=== PATIENT | female | born 1930 | race Caucasian/White ===

== ENCOUNTER 2018-09-20 23:01 | Inpatient (IN) | payer MEDICARE, OTHER ==
[~2018-09-20] VITALS: Ht 170.2 cm; Wt 65.3 kg
[2018-09-21] VITALS (10 sets, daily range): BP systolic 124–158; BP diastolic 66–84
[2018-09-21] MEDS ORDERED: SODIUM CHLORIDE 0.9% 1000ML 1,000 ML IV STA (00:06)
[2018-09-21] MEDS ORDERED: CEFTRIAXONE SOD 1 GM/NS 50 ML 50 ML IV ONE (00:15)
--- NOTE | 2018-09-21 00:47 | Diagnostic Imaging Report ---
EXAM: CT Abdomen and Pelvis WITHOUT contrast INDICATION: Hematuria. ^Stone Protocol COMPARISON: None. TECHNIQUE: Abdomen and pelvis were scanned utilizing a multidetector helical scanner from the lung base to the pubic symphysis without administration of IV contrast. Absence of intravenous contrast decreases sensitivity for detection of focal lesions and vascular pathology. Coronal and sagittal reformations were obtained. Routine protocol was performed. IV CONTRAST: None ORAL CONTRAST: Water COMPLICATIONS: None RADIATION DOSE: Total DLP: 310 mGy*cm Estimated effective dose: (DLP x 0.015 x size factor) mSv CTDIvol has been reviewed. It is below the limits set by the Radiation Protocol Committee (RPC). Dose modulation, iterative reconstruction, and/or weight based adjustment of the mA/kV was utilized to reduce the radiation dose to as low as reasonably achievable. FINDINGS: LINES and TUBES: None. LOWER THORAX: Bilateral lower lobe pleural thickening, right greater than left. There areas of groundglass opacities in the right lower lobe and possibly the left lower lobe, consistent with aspiration. Calcified granuloma in the right lower lobe. HEPATOBILIARY: Mildly lobular in contour without discrete evidence of cirrhosis. 1.3 cm benign cystic lesion in segment 2 of the liver (series 3, image 9), likely benign. No biliary ductal dilation. GALLBLADDER: No radio-opaque stones or sludge. No wall thickening. SPLEEN: No splenomegaly. PANCREAS: No focal masses or ductal dilatation. ADRENALS: No adrenal nodules KIDNEYS/URETERS: No hydronephrosis. 2.1 cm cystic lesion in the interpolar region of the left kidney (series 3, image 37). No stones. GI TRACT: No abnormal distention, wall thickening, or evidence of bowel obstruction. Cecum is located in the right upper quadrant, suggesting possible cecal bascule. Appendix is not clearly identified. Mild wall thickening of the anus. PELVIC ORGANS/BLADDER: Unremarkable. Pelvis phleboliths. LYMPH NODES: No lymphadenopathy. VESSELS: There is severe atherosclerotic disease in the aorta and major arterial branches. Aortobiiliac endograft stent. Distal abdominal aorta measures 4.0 x 2.5 cm. PERITONEUM / RETROPERITONEUM: No free air or fluid. BONES: There are degenerative changes in the lumbar spine. Grade 1 anterolisthesis of L3 on L4 and L5 on S1. Left total hip arthroplasty causing beam medication artifact in the pelvis. SOFT TISSUES: Unremarkable. IMPRESSION: 1. No renal stones identified. 2.1 cm cystic lesion in the left kidney. 2. Distended bladder. Otherwise unremarkable. 3. Aortic biiliac endograft. Aorta measures 3.5 x 4.0 cm. 4. Findings of reactive airway and likely component of aspiration in both lower lobes, right greater than left. 5. Nonspecific mild anal wall thickening. Signed by: Dr. Benjie Haynes M.D. on 09/21/2018 12:44 AM
[2018-09-21 00:50] LABS: BASOPHILS # (AUTO) 0.1 (0.0-0.1); BASOPHILS % 0.8 % (0.0-1.0); EOSINOPHILS # (AUTO) 0.2 (0.0-0.4); EOSINOPHILS % 2.4 % (0.0-6.0); HEMATOCRIT 45.4 % (34.2-44.1); HEMOGLOBIN 14.6 g/dL (12.0-16.0); LYMPHOCYTES # (AUTO) 2.8 (1.0-3.2); LYMPHOCYTES % 33.5 % (18.0-39.1); MEAN CORPUSCULAR HEMOGLOBIN 31.4 pg (28-32); MEAN CORPUSCULAR HGB CONC 32.2 g/dL (31-35); MEAN CORPUSCULAR VOLUME 97.6 fL (81-99); MONOCYTES # (AUTO) 0.9 (0.2-0.8); MONOCYTES % 10.1 % (4.4-11.3); NEUTROPHILS # (AUTO) 4.4 (2.1-6.9); NEUTROPHILS % 52.8 % (38.7-80.0); PLATELET COUNT 201 x10e3/uL (140-360); RED BLOOD COUNT 4.65 x10e6/uL (3.6-5.1); RED CELL DISTRIBUTION WIDTH 13.4 % (11.7-14.4)
[2018-09-21 00:56] LABS: INR 0.95; PROTHROMBIN TIME 13.2 seconds (11.9-14.5)
[2018-09-21 00:57] LABS: PARTIAL THROMBOPLASTIN TIME 34.2 seconds (23.8-35.5)
[2018-09-21 01:07] LABS: ALANINE AMINOTRANSFERASE 18 IU/L (0-55); ALBUMIN 3.6 g/dL (3.5-5.0); ALBUMIN/GLOBULIN RATIO 0.9 (0.8-2.0); ALKALINE PHOSPHATASE 83 IU/L (40-150); ANION GAP 13.5 mmol/L (8-16); BLOOD UREA NITROGEN 16 mg/dL (7-26); BUN/CREATININE RATIO 21 (6-25); CALCIUM 9.5 mg/dL (8.4-10.2); CARBON DIOXIDE 28 mmol/L (22-29); CHLORIDE 102 mmol/L (98-107); CREATINE KINASE 77 IU/L (29-168); CREATININE, SERUM 0.75 mg/dL (0.57-1.11); EST GLOMERULAR FILTRATION RATE > 60 ML/MIN (60-); GLUCOSE 90 mg/dL (74-118); MAGNESIUM 2.4 MG/DL (1.3-2.1); POTASSIUM 4.5 mmol/L (3.5-5.1); SODIUM 139 mmol/L (136-145)
[2018-09-21 01:30] LABS: COLOR,URINE RED (YELLOW)
[2018-09-21 01:31] LABS: BILIRUBIN,URINE NEGATIVE (NEGATIVE); CLARITY,URINE CLOUDY (CLEAR); KETONES,URINE TRACE (NEGATIVE); LEUKOCYTE ESTERASE ,URINE 1+ (NEGATIVE); NITRITE,URINE POSITIVE (NEGATIVE); PROTEIN,URINE DIPSTICK 2+ (NEGATIVE); RBC,URINE >50 /HPF (0-5); URINE UROBILINOGEN 0.2 mg/dL (0.2 - 1); WBC,URINE (MAN) 0-5 /HPF (0-5)
[2018-09-21 01:32] LABS: BACTERIA,URINE RARE /HPF; EPITHELIAL CELLS,URINE RARE /LPF
[2018-09-21] MEDS ORDERED: MORPHINE SULFATE INJ 4 MG/ML INJ 1ML IV PRN (02:45)
[2018-09-21] MEDS ORDERED: LEVALBUTEROL HCL SOLN NEBU 0.63 MG/3 ML NEB INH PRN (02:45)
[2018-09-21] MEDS ORDERED: ONDANSETRON HCL INJ 2MG/ML 2ML 2 MG/ML VIAL IV PRN (02:45)
[2018-09-21] MEDS ORDERED: IPRATROPIUM BROMIDE 0.02% 2.5 ML NEB NEB PRN (02:45)
--- OUTSIDE RECORDS SUMMARY | 2018-09-21 02:51 | XMS REPORT ---
[facility] Address Unknown Phone Unavailable Care Team Providers Care Blood Bank Technician Name Role Phone Barbara CARTAGENA Unavailable Unavailable Problems This patient has no known problems. Allergies, Adverse Reactions, Alerts This patient has no known allergies or adverse reactions. Medications This patient has no known medications. Results Test Description Test Time Test Comments Text Results Atomic Results Result Comments CT ABDOMEN/PELVIS WO 2018-09-21 00:30:00 [facility] [address] [place] [address] Patient Name: CECELIA MORENO MR #: [id number] : 1930 Age/Sex: 88/F Req #: [id number] Adm Physician: Ordered by: KIM CARTAGENA MD Report #: [id number] Location: ER Room/Bed: Procedure: [id number] CT/CT ABDOMEN/PELVIS WO Exam Date: Exam Time: REPORT STATUS: Signed EXAM: CT Abdomen and Pelvis WITHOUT contrast INDICATION: Kevin turia. Stone Protocol COMPARISON: None. TECHNIQUE: Abdomen and pelvis were scanned utilizing a multidetector helical scanner from the lung base to the pubic symphysis without administration of IV contrast. Absence of intravenous contrast decreases sensitivity for detection of focal lesions and vascular pathology. Coronal and sagittal reformations were obtained. Routine protocol was performed. IV CONTRAST: None ORAL CONTRAST: Water COMPLICATIONS: None RADIATION DOSE: Total DLP: 310 mGy*cm Estimated effective dose: (DLP x 0.015 x size factor) mSv CTDIvol has been reviewed. It is below the limits set by the Radiation Protocol Committee (RPC). Dose modulation, iterative reconstruction, and/or weight based adjustment of the mA/kV was utilized to reduce the radiation dose to as low as reasonably achievable. FINDINGS: LINES and TUBES: None. LOWER THORAX: Bilateral lower lobe pleural thickening, right greater than left. There areas of groundglass opacities in the right lower lobe and possibly the left lower lobe, consistent with aspiration. Calcified granuloma in the right lower lobe. HEPATOBILIARY: Mildly lobular in contour without discrete evidence of cirrhosis. 1.3 cm benign cystic lesion in segment 2 of the liver (series 3, image 9), likely benign. No biliary ductal dilation. GALLBLADDER: No radio-opaque stones or sludge. No wall thickening. SPLEEN: No splenomegaly. PANCREAS: No focal masses or ductal dilatation. ADRENALS: No adrenal nodules KIDNEYS/URETERS: No hydronephrosis. 2.1 cm cystic lesion in the interpolar region of the left kidney (series 3, image 37). No stones. GI TRACT: No abnormal distention, wall thickening, or evidence of bowel obstruction. Cecum is located in the right upper quadrant, suggesting possible cecal bascule. Appendix is not clearly identified. Mild wall thickening of the anus. PELVIC ORGANS/BLADDER: Unremarkable. Pelvis phleboliths. LYMPH NODES: No lymphadenopathy. VESSELS: There is severe atherosclerotic disease in the aorta and major arterial branches. Aortobiiliac endograft stent. Distal abdominal aorta measures 4.0 x 2.5 cm. PERITONEUM / RETROPERITONEUM: No free air or fluid. BONES: There are degenerative changes in the lumbar spine. Grade 1 anterolisthesis of L3 on L4 and L5 on S1. Left total hip arthroplasty causing beam medication artifact in the pelvis. SOFT TISSUES: Unremarkable. IMPRESSION: 1. No renal stones identified. 2.1 cm cystic lesion in the left kidney. 2. Distended bladder. Otherwise unremarkable. 3. Aortic biiliac endograft. Aorta measures 3.5 x 4.0 cm. 4. Findings of reactive airway and likely component of aspiration in both lower lobes, right greater than left. 5. Nonspecific mild anal wall thickening. Signed by: Dr. Bharath Haynes M.D. on 09/21/2018 12:44 AM Dictated By: BHARATH HAYNES MD Transcribed By: STEFAN on 09/21/1843 COPY TO: KIM CARTAGENA MD
[2018-09-21] MEDS ORDERED: OCUVITE TABLET1 EAC1 PO (02:52)
[2018-09-21] MEDS ORDERED: TOPROL XL50 MG PO (02:52)
[2018-09-21] MEDS ORDERED: SPIRIVA18 MCG INH (02:52)
[2018-09-21] MEDS ORDERED: COLACE100 MG PO (02:52)
[2018-09-21] MEDS ORDERED: PLAVIX75 MG PO (02:52)
[2018-09-21] MEDS ORDERED: MICARDIS40 MG PO (02:52)
[2018-09-21] MEDS ORDERED: DONNATAL TABL16.2 MG PO (02:52)
[2018-09-21] MEDS ORDERED: UNISOM50 MG PO (02:52)
[2018-09-21] MEDS ORDERED: CELEBREX100 MG PO (02:52)
[2018-09-21] MEDS ORDERED: XOPENEX INH (02:52)
[2018-09-21] MEDS ORDERED: ZANTAC150 MG PO (02:52)
[2018-09-21] MEDS ORDERED: ZYRTEC10 MG PO (02:52)
[2018-09-21] MEDS ORDERED: ASPIR 8181 MG PO (02:52)
[2018-09-21] MEDS ORDERED: THERA TEARS NU1 EACH PO (02:52)
[2018-09-21] MEDS: NICOTINE 21 MG/EA PATCH TOP SCH ×2 (03:12→11:23)
[2018-09-21] MEDS: SODIUM CHLORIDE 0.9% 1000ML 1,000 ML IV SCH ×3 (03:12→23:52)
--- NOTE | 2018-09-21 04:10 | NUR ---
Pt received from ER. Pt A&O and in no apparent distress. Pt has josephine. All safety measures ensured.
--- NOTE | 2018-09-21 07:24 | NUR ---
report given and walking rounds complete
[2018-09-21] MEDS: CEFTRIAXONE SOD 1 GM/NS 50 ML 50 ML IV SCH ×2 (11:24→23:52)
[2018-09-21] MEDS ORDERED: ONDANSETRON HCL 4 MG ORAL DISINTEGRATING TAB PO PRN (15:15)
[2018-09-21] MEDS: FAMOTIDINE 20 MG TAB PO SCH (17:02)
[2018-09-21] MEDS: CELECOXIB 100 MG CAP PO SCH (17:02)
--- NOTE | 2018-09-21 19:00 | NUR ---
RECEIVED REPORT FROM DAY NURSE. PATIENT IS RESTING COMFORTABLY IN BED. BED IS IN THE LOWEST POSITION AND CALL ORTIZ IS WITHIN REACH. WILL CONTINUE TO MONITOR PATIENT.
--- NOTE | 2018-09-21 22:00 | NUR ---
PATIENT IS REQUESTING MEDICATION TO HELP HER GET SOME SLEEP. PAGED. RECEIVED NEW ORDERS FOR SLEEPING MEDICATION.
--- NOTE | 2018-09-21 23:09 | History and Physical ---
HISTORY OF PRESENT ILLNESS: Anne Judge is an 88-year-old female, who had a past medical history positive for hypertension, history of coronary artery disease, status post stents in the past, who came to the hospital because of sudden onset of blood in the urine. REVIEW OF SYSTEMS: CARDIOVASCULAR: No chest pain or palpitation. RESPIRATORY: No shortness of breath. No cough. GASTROINTESTINAL: No nausea or vomiting. No diarrhea. GENITOURINARY: She has blood in the urine. No dysuria. ALLERGIES: DETAILED IN THE CHART. SHE IS ALLERGIC TO GLUCOSAMINE, MORPHINE, AND PENICILLIN. SOCIAL HISTORY: She states she smokes, but she does not drink alcohol because she is allergic to alcohol according to her. PAST MEDICAL HISTORY: Hypertension, coronary artery disease with stent placement 9 years ago. PHYSICAL EXAMINATION: VITAL SIGNS: Blood pressure 148/66, temperature 36.9, heart rate 71 per minute, respiratory rate 18 per minute, and oxygen saturation 90%. HEART: Showed regular rhythm. Normal S1, S2 sound. LUNGS: Clear bilaterally. ABDOMEN: Soft. EXTREMITIES: Show no evidence of cyanosis, edema or trauma. LABORATORY DATA: BMP; sodium 139, potassium 4.5, chloride 102, CO2 of 28, BUN 16, creatinine 0.75, and glucose 92. CBC, white blood count 8.41, hemoglobin 14.6, hematocrit 45.4, platelet count 201,000, PT 13.2, PTT 34.2, INR 0.95. AST 24, ALT 18, total bilirubin 0.3, alkaline phosphatase 83. CAT scan of the chest was done and it showed evidence of no renal stenosis, 2.1 cm cystic lesion in the left kidney, distended bladder, [id number] endograft aortic measured 3.5 x 4 cm, findings reactive airway, likely in both lower lobes, right greater than left, nonspecific wall thickening. IMPRESSION: 1. Hematuria. 2. Urinary tract infection. 3. Hypertension. 4. Coronary artery disease, status post stent placement. PLAN OF TREATMENT: Dr. Garrison of Urology is going to continue the irrigation and pursue for cystoscopy then. Continue Xopenex q.4 hours, Atrovent q.4 hours, and ceftriaxone 1 g IV twice a day. Urine culture has been sent. Continue IV fluids. Continue nicotine 21 mg daily patch, Zofran 4 mg q.4 hours as needed, morphine 2 mg IV q.4 hours as needed. We are going to repeat another CBC tomorrow. MD YANCI Simon/MELISSA /[id number]
--- NOTE | 2018-09-21 23:39 | Consultation ---
DATE OF CONSULTATION: 09/21/2018 Urology Consultation REASON FOR CONSULTATION: Gross hematuria. HISTORY OF PRESENT ILLNESS: Anne Judge is an 88-year-old woman, who has never seen urologist. The patient is a lifelong smoker and she smokes half pack of cigarettes per day. She noted severe gross hematuria, reported to the emergency room. Also had some signs of urinary retention and symptomatology of urinary retention. Large-bore Grant catheter was placed and urological consultation was sought. The patient has had a history of urinary tract infections. She denies any previous urological surgery. PAST MEDICAL AND SURGICAL HISTORY: 1. Status post abdominal aortic aneurysm repair. 2. Status post appendectomy. 3. Status post PTCA and stent placement. 4. Status post total abdominal hysterectomy, bilateral salpingo-oophorectomy. CURRENT MEDICATIONS: Please refer to the MAR. ALLERGIES: PENICILLIN, GLUCOSAMINE, AND MORPHINE. SOCIAL HISTORY: The patient smokes half a pack per day of cigarettes. Denies ethanol and drug use. 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 FAMILY HISTORY: Noncontributory to the active urological problems. REVIEW OF SYSTEMS: Discussed as above in the history of present illness and past medical history otherwise negative for all systems. PHYSICAL EXAMINATION: GENERAL: Very lucid and pleasant 88-year-old woman, lying in bed, in no apparent distress. She is currently febrile. VITAL SIGNS: Currently stable. ABDOMEN: Soft, nondistended, and nontender without costovertebral angle tenderness. Kidney is not palpable without hepatosplenomegaly. No obvious evidence of hernia. GENITOURINARY: There is a 24-Faroese Grant catheter in place with dark thick red urine out. External genitalia are unremarkable. For the remaining physical examination systems, please refer to the admission history and physical as well as the ERT sheet. LABORATORY STUDIES: White blood cell count is 8410, hemoglobin 14.6, and platelets 201,000. The patient's creatinine is normal at 0.75. Her magnesium is elevated at 2.4. Urinalysis significant for greater than 50 RBCs with nitrite, positive urine, 1+ leukocyte esterase. PT and PTT are unremarkable. Urine blood cultures are pending. CT scan of the abdomen and pelvis was done with stone protocol, it revealed a 2.1 cm cystic lesion in the interpolar region of the left kidney and a distended urinary bladder. It also revealed an aorto bi-iliac endograft. ASSESSMENT: 1. Severe gross hematuria. 2. Urinary tract infection. 3. Active smoker. 4. Urinary retention due to clotting. 5. Hypomagnesemia. 6. Renal cyst. PLAN: 1. Await urine culture and sensitivity. 2. Regular irrigation Grant. 3. Hold the patient's aspirin, she took it last two days ago. 4. Smoking cessation of course is encouraged. 5. The patient definitely needs cystoscopy and retrograde pyelograms in management of whatever we find. However, ideally we should wait until the aspirin is more out of the patient's system as well as hopefully wait for the hematuria to resolve, so we can clearly see the bladder wall. Thank you very much for involving us in the care of your patient. We will be happy to follow along with you as well as an outpatient. Mark MD Bladimir [place]/MODL /[id number] cc: MD Dax Simon
[2018-09-22] VITALS (10 sets, daily range): BP systolic 117–181; BP diastolic 58–94
[2018-09-22] MEDS: ZOLPIDEM TARTRATE 5 MG TAB PO PRN (00:45)
[2018-09-22 05:53] LABS: BASOPHILS % 0.5 % (0.0-1.0); EOSINOPHILS # (AUTO) 0.2 (0.0-0.4); EOSINOPHILS % 3.6 % (0.0-6.0); HEMATOCRIT 33.3 % (34.2-44.1); HEMOGLOBIN 10.7 g/dL (12.0-16.0); LYMPHOCYTES # (AUTO) 2.1 (1.0-3.2); LYMPHOCYTES % 37.1 % (18.0-39.1); MEAN CORPUSCULAR HEMOGLOBIN 31.8 pg (28-32); MEAN CORPUSCULAR HGB CONC 32.1 g/dL (31-35); MEAN CORPUSCULAR VOLUME 99.1 fL (81-99); MONOCYTES # (AUTO) 0.8 (0.2-0.8); MONOCYTES % 13.5 % (4.4-11.3); NEUTROPHILS # (AUTO) 2.5 (2.1-6.9); NEUTROPHILS % 45.1 % (38.7-80.0); PLATELET COUNT 147 x10e3/uL (140-360); RED BLOOD COUNT 3.36 x10e6/uL (3.6-5.1); RED CELL DISTRIBUTION WIDTH 13.4 % (11.7-14.4)
[2018-09-22] MEDS: TIOTROPIUM 18 MCG INH POWDER INH SCH (06:00)
[2018-09-22 06:11] LABS: ALANINE AMINOTRANSFERASE 9 IU/L (0-55); ALBUMIN 2.7 g/dL (3.5-5.0); ALKALINE PHOSPHATASE 63 IU/L (40-150); ANION GAP 6.9 mmol/L (8-16); BLOOD UREA NITROGEN 7 mg/dL (7-26); BUN/CREATININE RATIO 12 (6-25); CALCIUM 8.2 mg/dL (8.4-10.2); CARBON DIOXIDE 26 mmol/L (22-29); CHLORIDE 109 mmol/L (98-107); CREATININE, SERUM 0.59 mg/dL (0.57-1.11); EST GLOMERULAR FILTRATION RATE > 60 ML/MIN (60-); GLUCOSE 88 mg/dL (74-118); POTASSIUM 3.9 mmol/L (3.5-5.1); SODIUM 138 mmol/L (136-145)
--- NOTE | 2018-09-22 07:00 | NUR ---
report given to day nurse. patient is resting in bed. call carson is within reach.
[2018-09-22 07:01] LABS: PLATELET ESTIMATE ADEQUATE; PLATELET MORPHOLOGY COMMENT NORMAL
--- NOTE | 2018-09-22 09:17 | NUR ---
CALLED DR. VIRGEN GALLAGHER'S ANSWERING SERVICE, SPOKE TO SIVA REGARDING BAER FLUSH ORDER, AFTER PATIENT STATED THAT SHE HIS EXPERIENCING A "PRESSURE IN THE FRONT AND FEELS LIKE SHE IS GOING TO EXPLODE."
--- NOTE | 2018-09-22 09:53 | NUR ---
PT REPORTS ALLERGY TO MORPHINE THAT IS ORDERED, TELEPHONED MD CARR FOR PAIN MEDICATION ORDERS, AWAITING CALL BACK Addendum: 09/22/18 at 0956 by Yamileth Abebe RN NOTIFIED PHARMACY OF MORPHINE ALLERGY
[2018-09-22] MEDS ORDERED: HYDROCODONE/APAP 7.5MG-325MG 1 EA TAB PO PRN (10:30)
[2018-09-22] MEDS: SODIUM CHLORIDE 0.9% 1000ML 1,000 ML IV SCH ×2 (10:43→21:22)
[2018-09-22] MEDS: CELECOXIB 100 MG CAP PO SCH ×2 (11:55→17:36)
[2018-09-22] MEDS: TELMISARTAN 40 MG TAB PO SCH (11:56)
[2018-09-22] MEDS: OCUVITE PRESERVISION TABLET PO SCH (11:57)
[2018-09-22] MEDS: CLOPIDOGREL BISULFATE 75 MG TAB PO SCH (11:58)
[2018-09-22] MEDS: METOPROLOL SUCCINATE 50 MG TAB XL PO SCH (11:58)
[2018-09-22] MEDS: FAMOTIDINE 20 MG TAB PO SCH ×2 (11:58→17:37)
[2018-09-22] MEDS: NICOTINE 21 MG/EA PATCH TOP SCH (11:58)
[2018-09-22] MEDS: DOCUSATE SODIUM 100 MG CAP PO SCH (12:04)
[2018-09-22] MEDS: CEFTRIAXONE SOD 1 GM/NS 50 ML 50 ML IV SCH ×2 (12:07→23:22)
[2018-09-22] MEDS ORDERED: SODIUM CHLORIDE 0.9% 250ML 250 ML ONE (12:48)
[2018-09-22] MEDS ORDERED: IOPAMIDOL 370 MG/ML 200 ML INFUS..BTL INJ ONE (12:48)
[2018-09-22] MEDS ORDERED: HYDROCODONE/APAP 10MG-325MG TAB PO PRN (15:00)
--- NOTE | 2018-09-22 15:22 | Diagnostic Imaging Report ---
EXAM: CT Abdomen and Pelvis with contrast INDICATION: Hematuria, left lower abdominal pain. COMPARISON: None. TECHNIQUE: Abdomen and pelvis were scanned utilizing a multidetector helical scanner from the lung base to the pubic symphysis with administration of IV contrast. Noncontrast and contrast-enhanced images were obtained. Coronal and sagittal reformations were obtained. Hematuria protocol was performed. IV CONTRAST: 100 cc of Isovue 370. ORAL CONTRAST: Gastrografin. COMPLICATIONS: None RADIATION DOSE: Total DLP: 837.5 mGy*cm Estimated effective dose: (DLP x 0.015 x size factor) mSv Dose modulation, iterative reconstruction, and/or weight based adjustment of the mA/kV was utilized to reduce the radiation dose to as low as reasonably achievable. FINDINGS: LINES and TUBES: None. LOWER THORAX: Mild bilateral lower lobe pleural thickening, right greater than left. There areas of groundglass opacities and tree-in-bud nodules in the right lower lobe and possibly the left lower lobe, consistent with aspiration. Calcified granuloma in the right lower lobe. Coronary atherosclerosis. HEPATOBILIARY: Mildly lobular in contour without discrete evidence of cirrhosis. 1.3 cm left hepatic cyst. No biliary ductal dilatation. GALLBLADDER: No radio-opaque stones or sludge. No wall thickening. SPLEEN: No splenomegaly. PANCREAS: No focal masses or ductal dilatation. ADRENALS: No adrenal nodules KIDNEYS/URETERS: No hydronephrosis. No evidence of solid mass. Left renal cyst. Multiple additional bilateral subcentimeter renal hypodensities are too small to characterize, but likely represent cysts. The collecting system and the right ureter are opacified. The majority of the left ureter is opacified with some limitation in visualization of the left distal ureter secondary to adjacent streak artifact. No definite lesion in the ureter. GI TRACT: Limited evaluation the pelvis secondary to streak artifact. No evidence of bowel obstruction. Cecum is located in the right upper quadrant, suggesting possible cecal bascule. Appendix is not clearly identified. Mild wall thickening of the anus. Again noted is mild anal wall thickening. PELVIC ORGANS/BLADDER: There is a Grant catheter within the bladder. The bladder is partially decompressed. There is apparent asymmetric wall thickening in the left anterior aspect of the bladder, measuring up to 1 cm (series 6, image 141). However on the prior noncontrast CT, no definite bladder wall thickening was visualized. The uterus is absent. LYMPH NODES: No lymphadenopathy. VESSELS: There is severe atherosclerotic disease in the aorta and major arterial branches. Extensive atherosclerotic within the right common femoral artery with moderate to severe stenosis. There is a juxta and infrarenal abdominal aortic aneurysm status post aortobiiliac endograft stent. Exam was not optimized for arterial vascular imaging. There is hyperdensity within the left lateral aspect of the excluded sac (series 6, image 68), incompletely evaluated, but suspicious for endoleak. The excluded aneurysm sac measures up to 4.3 cm. The SMA and celiac artery appear grossly patent. PERITONEUM / RETROPERITONEUM: No free air or fluid. BONES/SOFT TISSUES: There are degenerative changes in the lumbar spine. Grade 1 anterolisthesis of L3 on L4 and L5 on S1. Partially seen left total hip arthroplasty with associated streak artifact. IMPRESSION: No evidence of solid renal mass or stone. Grant catheter is in the bladder, the bladder is partially decompressed. There is apparent asymmetric wall thickening in the left anterior aspect of the bladder, measuring up to 1 cm. However on the prior noncontrast CT, no definite bladder wall thickening was visualized. Cystoscopy may be considered for further evaluation in the setting of hematuria. Juxtarenal and infrarenal abdominal aortic aneurysm status post endovascular repair. Suspected endoleak along the left lateral aspect of the excluded sac, incompletely evaluated on this nonvascular study. Recommend dedicated CTA of the abdomen and pelvis for further evaluation. Findings of reactive airway disease with aspiration in the lower lobes, right greater than left. Follow-up chest CT may be considered in 3 months to assess for resolution. Nonspecific mild renal wall thickening. Signed by: Dr. Trell Galvan MD on 09/22/2018 3:18 PM
--- NOTE | 2018-09-22 15:44 | Progress Note ---
DATE: Internal Medicine Progress Note SUBJECTIVE: The patient is doing well. Feeling better after blood clots have gone away, but last night, she had severe pain, now she is better. OBJECTIVE: VITAL SIGNS: Blood pressure 167/72, temperature 96.3, heart rate 64 per minute, respiratory rate 18 per minute, and oxygen saturation 94%. ABDOMEN: Soft. EXTREMITIES: Show no evidence of cyanosis, edema, or trauma. LABORATORY DATA: BMP; sodium 138, potassium 3.9, chloride 109, CO2 26, BUN 7, creatinine 0.59, and glucose 88. CBC; white blood count 5.61, hemoglobin 10.7, hematocrit 33.3, and platelet count 147,000. PT 13.2, INR 0.95, PTT 34.2. AST 17, ALT 9, total bilirubin 0.4, and alkaline phosphatase 63. FINAL IMPRESSION: 1. Hematuria. 2. Urinary tract infection. 3. Uncontrolled hypertension. 4. Coronary artery disease, status post stent placement. PLAN OF TREATMENT: Continue Xopenex q.4 hours, Atrovent q.4 hours because of history of COPD. Continue on ceftriaxone 2 g IV twice a day. Sodium chloride 100 mg/hour, Colace 100 mg daily, beta-carotene one tablet daily, [place]reeze 1 tablet q.6 hours as needed, NicoDerm patch 21 mg daily, metoprolol 25 mg daily, Pepcid 20 mg twice a day, Celebrex 200 mg twice a day, Micardis 80 mg daily, Zofran 4 mg IV q.4 hours as needed, Plavix 75 mg daily, Spiriva 1 inhalation daily, Ambien 10 mg at night p.r.n. for sleep. The patient has been seen by Dr. Garrison cystoscopy with retrograde. Hematuria has resolved. Hemoglobin and hematocrit so far are stable. MD YANCI Simon/MELISSA /[id number]
--- NOTE | 2018-09-22 20:00 | NUR ---
patient states she is not suppose to have anything by mouth. MD notified to verify patient's statements. MD states it is ok for patient to eat by mouth. MD also gave orders to restart normal saline solution IV. Patient was notified of MD's orders.
[2018-09-23] VITALS (7 sets, daily range): BP systolic 141–166; BP diastolic 68–79
[2018-09-23 05:00] LABS: BASOPHILS % 0.6 % (0.0-1.0); EOSINOPHILS # (AUTO) 0.2 (0.0-0.4); EOSINOPHILS % 3.2 % (0.0-6.0); HEMATOCRIT 34.2 % (34.2-44.1); HEMOGLOBIN 10.9 g/dL (12.0-16.0); LYMPHOCYTES # (AUTO) 1.2 (1.0-3.2); LYMPHOCYTES % 24.5 % (18.0-39.1); MEAN CORPUSCULAR HEMOGLOBIN 31.1 pg (28-32); MEAN CORPUSCULAR HGB CONC 31.9 g/dL (31-35); MEAN CORPUSCULAR VOLUME 97.7 fL (81-99); MONOCYTES # (AUTO) 0.4 (0.2-0.8); MONOCYTES % 8.8 % (4.4-11.3); NEUTROPHILS # (AUTO) 3.2 (2.1-6.9); NEUTROPHILS % 62.7 % (38.7-80.0); PLATELET COUNT 145 x10e3/uL (140-360); RED CELL DISTRIBUTION WIDTH 13.3 % (11.7-14.4)
--- NOTE | 2018-09-23 06:57 | NUR ---
report given to day nurse. patient is resting comfortably in bed. bed is in lowest position and call light is within reach.
[2018-09-23] MEDS: SODIUM CHLORIDE 0.9% 1000ML 1,000 ML IV SCH ×2 (07:45→18:27)
[2018-09-23] MEDS: METOPROLOL SUCCINATE 50 MG TAB XL PO SCH (09:00)
[2018-09-23] MEDS: CELECOXIB 100 MG CAP PO SCH ×2 (09:27→18:19)
[2018-09-23] MEDS: AMLODIPINE BESYLATE 5 MG TAB PO SCH (09:28)
[2018-09-23] MEDS: FAMOTIDINE 20 MG TAB PO SCH ×2 (09:28→18:19)
[2018-09-23] MEDS: OCUVITE PRESERVISION TABLET PO SCH (09:28)
[2018-09-23] MEDS: DOCUSATE SODIUM 100 MG CAP PO SCH (09:28)
[2018-09-23] MEDS: TELMISARTAN 40 MG TAB PO SCH (09:28)
[2018-09-23] MEDS: CLOPIDOGREL BISULFATE 75 MG TAB PO SCH (09:30)
[2018-09-23] MEDS: NICOTINE 21 MG/EA PATCH TOP SCH (09:30)
[2018-09-23] MEDS: TIOTROPIUM 18 MCG INH POWDER INH SCH (11:30)
--- NOTE | 2018-09-23 13:01 | NUR ---
CALLED [phone] [facility]O NURIA PINEDA, SPOKE TO PEGGY PINEDA FOR CONSULT FOR CONDITION OF ABDOMINAL AIRTIC LEAK, S/P REPAIR.
--- NOTE | 2018-09-23 13:12 | Progress Note ---
DATE: Internal Medicine Progress Note SUBJECTIVE: Patient's hematuria is resolving. CT of the abdomen showed some renal cyst on the left and some very small punctate lesions on the kidneys, bladder most likely secondary to the clot that she had before. I recommend cystoscopy also with questionable endovascular leak on prior repair of abdominal aortic aneurysm. PHYSICAL EXAMINATION: VITAL SIGNS: Blood pressure 146/68, temperature 96.2, heart rate 59 per minute, respiratory rate 21 per minute, oxygen saturation 95%. HEART: Showed regular rhythm. Normal S1, S2 sound. LUNGS: Clear bilaterally. ABDOMEN: Soft. EXTREMITIES: Show no evidence of cyanosis or trauma. Pulses are 2+ bilaterally. LABORATORY DATA: BMP; sodium 138, potassium 3.9, chloride 109, CO2 of 26, BUN 7, creatinine 0.59, glucose 88. CBC; white count 5.02, hemoglobin 10.9, hematocrit 34.2, platelet count of 145,000. PT 13.2, INR 0.95, PTT 34.2. AST 17, ALT 9, total bilirubin 0.4, and phosphatase of 63. FINAL IMPRESSION: 1. Hematuria, which is resolved. 2. Hypertension. 3. Urinary tract infection. 4. Chronic obstructive pulmonary disease. 5. Abdominal aortic aneurysm status post repair. PLAN: The patient is going to have cystoscopy when she is off the aspirin for few more days. Continue beta-carotene daily, amlodipine 5 mg daily, nicotine 21 mg daily patch, metoprolol 75 mg daily, Pepcid 20 mg twice a day, Pomeroy 1 tablet q.4 hours as needed for pain, Rocephin 2 g IV twice a day, Xopenex q.4 hours, Atrovent q.4 hours, Celebrex 200 mg twice a day, Micardis 80 mg daily, Zofran 4 mg IV q.4 hours as needed. I am going to put a hold on the Plavix. Continue Spiriva 1 inhalation daily, Ambien 10 mg at night p.r.n. for sleep. Dr. Garrison is seeing the patient from Neurology point of view, he is planning to do a cystoscopy and Dr. Duarte was going to see her because of the endovascularly leak. We are going to also do a CT angiogram of the abdominal aorta. MD YANCI Simon/MELISSA /[id number]
--- NOTE | 2018-09-23 16:00 | NUR ---
3 WAY BAER TIP EMPTIED (30 ML), CATHETER REMOVED, CATHETER TIP INTACT, PATIENT STATED THAT SHE FEELS MUCH BETTER NOW, 250 ML EMPTIED FROM BAER BAG, PATIENT INSTUCTED THAT ALL URINE WILL BE SAVED TO ENSURE THAT IT REMAINS CLEAR (SERIAL URINE COLLECTION.)
[2018-09-23] MEDS ORDERED: SODIUM CHLORIDE 0.9% 100 ML 100 ML ONE (18:00)
[2018-09-23] MEDS ORDERED: IOPAMIDOL 370 MG/ML 200 ML INFUS..BTL INJ ONE (18:01)
[2018-09-23] MEDS: CEFTRIAXONE SOD 1 GM/NS 50 ML 50 ML IV SCH ×2 (18:19→23:06)
--- NOTE | 2018-09-23 19:00 | NUR ---
received report from day nurse. patient is resting comfortably in bed.bed is in lowest position and call carson is within reach. will continue to monitor patient.
--- NOTE | 2018-09-23 23:39 | Consultation ---
DATE OF CONSULTATION: 09/23/2018 Cardiology Consultation REASON FOR CONSULTATION: Evaluate cardiac status. HISTORY OF PRESENT ILLNESS: Ms. Judge is an 88-year-old female with past medical history of hypertension, coronary artery disease with remote history of myocardial infarction and stenting and remote history of EVAR surgically approached, done 10 years ago in [place]. The patient has been maintained on anti-platelet therapy with Plavix. She has not seen a university archivist for many years and is not interested in re-establishing care with any commercial lawn specialist. She developed gross hematuria and came into the emergency room and ended up having a Grant with extensive bladder irrigation to help relieve some blood clots and bladder obstruction with Dr. Garrison. They did a CAT scan with contrast for a nondedicated study for CTA; however, the read claimed to be suspicion for perhaps an endovascular leak and recommended dedicated study. The patient denies any chest pain or any abdominal pain. She claims that she feels completely fine from a cardiovascular standpoint and is not interested in doing anything about her heart or anything related to her vasculature. We had a long discussion with the patient and daughter in terms of differential diagnosis as well as the natural history of AAA as well as different types of endovascular endoleaks that could happen with such a situation. The patient apparently reports that she had a second CT scan to look at the aneurysm. At the present time, again she denies any chest pain or any abdominal pain. She has just fullness in her bladder region related to her irrigation and reports no bowel movement since Monday. PAST MEDICAL HISTORY: 1. Hypertension, essential. 2. She claims that she does not have hyperlipidemia. 3. Coronary artery disease with remote history of myocardial infarction and stenting, unclear details. 4. History of abdominal aortic aneurysm, status post EVAR with a surgical groin incision done 10 years ago in [place] with unknown details. 5. COPD. PAST SURGICAL HISTORY: 1. History of hysterectomy. 2. History of bladder surgical repair 50 to 60 years in [place], [place]. 3. History of prior kidney issues. FAMILY HISTORY: The patient is unaware of any family history of coronary artery disease. SOCIAL HISTORY: She is a current smoker, smokes several cigarettes a day, started in her teens. Denies any alcohol or illicit drug use. ALLERGIES: INCLUDES GLUCOSAMINE, MORPHINE, PENICILLIN, AND SULFA. CURRENT MEDICATIONS: Include aspirin 81 mg daily, Celebrex 200 mg b.i.d., cetirizine 10 mg daily, Plavix 75 mg daily, Benadryl mg at bedtime, Colace 100 mg daily, Toprol-XL 75 mg daily, Zantac 150 mg b.i.d., Micardis 80 mg daily, Spiriva 18 mcg inhaled daily, multivitamin daily, Xopenex 1 to 2 puffs inhaled t.i.d. p.r.n. REVIEW OF SYSTEMS: GENERAL: Denies any fevers, chills, or any weight changes. HEENT: No headaches, visual complaints, sore throat, or stuffy nose. RESPIRATORY: Denies any pleuritic chest pain. She has class 3B exertional dyspnea symptoms. CARDIOVASCULAR: Denies any chest pain or discomfort. She denies any orthopnea, PND, or palpitations. GI: Positive for constipation and lower abdominal fullness. : Positive for gross hematuria with obstructive bladder symptoms as noted above. NEUROLOGIC: Denies any focal weakness, numbness, tingling, seizures, headache, history of TIA, or stroke. SKIN: No rashes or breakdowns. ENDOCRINE: Denies any heat or cold intolerance. No polyuria. No polydipsia. BACK: Positive for lower back pains. MUSCULOSKELETAL: Positive for claudication, swelling that tends to occur in the left ankle region and perhaps it swells on the left ankle due to her prior crush injury and fracture. Remainder of review of systems is negative otherwise as mentioned. PHYSICAL EXAMINATION: VITAL SIGNS: Height of 67 inches, weight of 143 pounds, and BMI is 22.4. Temperature of 97.3, pulse of 76, respiratory rate of 20, blood pressure is 142/68, O2 saturation 95% on room air. GENERAL: This is a well-nourished, well-developed lady, who is currently in no apparent distress. HEENT: Normocephalic and atraumatic. Pupils are equal, round, and reactive to light. Extraocular movements are intact. Oropharynx is clear. NECK: No elevation of jugular venous pulsation. There are severe bilateral carotid bruits. CARDIOVASCULAR: Regular rate and rhythm. Normal S1 and S2. Soft 2/6 systolic murmur at the left lower sternal border. LUNGS: Show poor air flow throughout lung rinaldi and diminished air entry, compatible with COPD changes. ABDOMEN: Soft, distended in the suprapubic region with hypoactive bowel sounds. BACK: No costovertebral angle tenderness. There is some kyphoscoliosis. EXTREMITIES: Warm with trace left ankle edema. There is old scar in the left ankle region from previous crush injury. : Positive for Grant irrigant. NEUROLOGIC: Cranial nerves II through XII are intact. Strength is 5/5 and nonfocal. PSYCHIATRIC: Very angry, but denies any depression or anxiety. LABORATORY DATA: White count of 5, hemoglobin of 10.9, hematocrit of 34.2, and platelets of 145. Sodium 138, potassium 3.9, chloride 109, bicarb 26, BUN 7, creatinine 0.59, glucose of 88. Calcium of 8.2. AST 17, ALT 9, alkaline phosphatase 63, total protein 5.4, albumin of 2.7. INR 0.95. UA shows greater than 50 red cells. Abdomen and pelvis CT reveals no renal stones, 2.1 cm cystic lesion in the left kidney. There is a distended bladder and there is an [id number] endograft with aorta underneath measuring 3.5 x 4 cm, and findings compatible with COPD changes in the lung and could not exclude an endoleak. DIAGNOSES: 1. Acute blood loss anemia secondary to gross hematuria with obstructive uropathy symptoms, status post irrigation Grant now with urine clear. 2. Coronary artery disease with prior history of heart attack and PCI. 3. Hypertension, essential. 4. Hypercholesteremia. 5. Chronic obstructive pulmonary disease, smoker. 6. History of infrarenal abdominal aortic aneurysm, remote history of endovascular aortic aneurysm repair by another provider 10 years ago in [place] with questionable endoleak. PLAN/RECOMMENDATIONS: 1. From a cardiovascular standpoint, we had a long discussion with the patient and daughter in terms of potential causes of endoleak and the natural history of infrarenal abdominal aortic aneurysm. 2. The patient is adamant that she does not want any aortic procedures including if there was an endoleak, which would make further workup move at this point in time. 3. Underlying abdominal aorta that has been excluded is under the rupture threshold of 4.6 cm for a female and we would not necessarily need to worry about it, even if there was an endoleak. 4. Evaluating the CT scan personally, I suspect that there is occlusion of her bilateral external iliacs and we do not have straight forward access for any such procedure. 5. We will recommend holding anti-platelet therapy as she has had pretty substantial gross hematuria, the patient understands risks and benefits of such approach. 6. We will check echocardiogram since she is here in case if Urology needs to do any sort of procedures, so we can anticipate. MD NANCY Rushing/COURTNEYL /[id number]
[2018-09-23] MEDS: ZOLPIDEM TARTRATE 5 MG TAB PO PRN (23:42)
[2018-09-24] VITALS: BP 167/77
[2018-09-24] MEDS: SODIUM CHLORIDE 0.9% 1000ML 1,000 ML IV SCH (03:00)
[2018-09-24 04:00] VITALS: BP 156/72
[2018-09-24 05:35] LABS: BASOPHILS % 0.4 % (0.0-1.0); EOSINOPHILS # (AUTO) 0.2 (0.0-0.4); EOSINOPHILS % 3.7 % (0.0-6.0); HEMATOCRIT 31.8 % (34.2-44.1); HEMOGLOBIN 10.5 g/dL (12.0-16.0); LYMPHOCYTES # (AUTO) 1.4 (1.0-3.2); MONOCYTES # (AUTO) 0.5 (0.2-0.8); MONOCYTES % 9.8 % (4.4-11.3); NEUTROPHILS # (AUTO) 2.5 (2.1-6.9); NEUTROPHILS % 54.9 % (38.7-80.0); PLATELET COUNT 144 x10e3/uL (140-360); RED BLOOD COUNT 3.28 x10e6/uL (3.6-5.1); RED CELL DISTRIBUTION WIDTH 13.2 % (11.7-14.4)
--- NOTE | 2018-09-24 06:58 | NUR ---
report given to day nurse. patient is resting comfortably in bed. bed is in lowest position and call light is within reach.
[2018-09-24] MEDS: TIOTROPIUM 18 MCG INH POWDER INH SCH (07:27)
[2018-09-24 07:42] VITALS: BP 175/73
[2018-09-24 07:45] VITALS: BP 175/73
[2018-09-24] MEDS: TELMISARTAN 40 MG TAB PO SCH (07:56)
[2018-09-24] MEDS: FAMOTIDINE 20 MG TAB PO SCH (07:56)
[2018-09-24] MEDS: AMLODIPINE BESYLATE 5 MG TAB PO SCH (07:56)
[2018-09-24] MEDS: CELECOXIB 100 MG CAP PO SCH (07:56)
[2018-09-24] MEDS: OCUVITE PRESERVISION TABLET PO SCH (07:56)
[2018-09-24] MEDS: METOPROLOL SUCCINATE 50 MG TAB XL PO SCH (07:56)
[2018-09-24] MEDS: NICOTINE 21 MG/EA PATCH TOP SCH (07:56)
[2018-09-24] MEDS: DOCUSATE SODIUM 100 MG CAP PO SCH (07:56)
[2018-09-24] MEDS ORDERED: HYDRALAZINE HCL 25 MG TAB PO SCH (09:00)
[2018-09-24] MEDS ORDERED: TELMISARTAN 40 MG TAB PO SCH (09:00)
--- NOTE | 2018-09-24 10:03 | Diagnostic Imaging Report ---
EXAM: CT Abdomen and Pelvis WITH contrast INDICATION: Abdominal aortic leak COMPARISON: CT abdomen/pelvis, 09/22/2018 TECHNIQUE: Abdomen and pelvis were scanned utilizing a multidetector helical scanner from the lung base to the pubic symphysis after administration of IV contrast. Coronal and sagittal reformations were obtained. CTA protocol was performed. Scan was performed when during arterial phase. Dose modulation, iterative reconstruction, and/or weight based adjustment of the mA/kV was utilized to reduce the radiation dose to as low as reasonably achievable. IV CONTRAST: 100 mL of Isovue-370 ORAL CONTRAST: None RADIATION DOSE: Total DLP: 376.84 mGy*cm Estimated effective dose: (DLP x 0.015 x size factor) mSv COMPLICATIONS: None FINDINGS: Preliminary report: Provided by Dr. Watson on 09/23/2018 at 1412 hours: No acute CT finding. LINES and TUBES: Grant catheter in the urinary bladder. LOWER THORAX: Left Bochdalek hernia. Bronchial wall thickening and mild bronchiectasis at the lung bases with no consolidation or pleural effusion. Heart size normal. HEPATOBILIARY: Small focus of arterial enhancement in the inferior right lobe of the liver likely small hemangioma. No other focal hepatic lesions. No biliary ductal dilation. GALLBLADDER: No radio-opaque stones or sludge. No wall thickening. Opaque material in the gallbladder compatible with excreted contrast from previous examinations. SPLEEN: No splenomegaly. PANCREAS: No focal masses or ductal dilatation. ADRENALS: No adrenal nodules KIDNEYS/URETERS: Kidneys enhance symmetrically. No hydronephrosis. Stable left renal cyst. No stones. GI TRACT: No abnormal distention, wall thickening, or evidence of bowel obstruction. Appendix is not specifically identified. PELVIC ORGANS/BLADDER: Urinary bladder decompressed with Grant catheter. Previously noted wall thickening is not well seen with the unopacified bladder. No discrete abnormal mass or fluid collection in the pelvis. LYMPH NODES: No lymphadenopathy. VESSELS: Again noted is an aortoiliac stent graft traversing an infrarenal abdominal aortic aneurysm which measures 4.1 x 3.6 cm transverse diameter. The stent graft is well opacified. On this arterial phase examination there is a small focus of density within the excluded aneurysm on the left (series 3, image 52; series 401, image 40). This is suspicious for small endoleak. This is at the midportion of the stent graft, near the junction with the iliac limbs. At the upper end of the stent graft renal arteries are opacified bilaterally. Celiac and superior mesenteric arteries are opacified. GUS opacification is not seen. Below the stent graft iliac arteries are atherosclerotic but patent. IVC and portal system is not well opacified due to bolus timing. There is reflux of contrast downward to the hepatic veins. PERITONEUM / RETROPERITONEUM: No pneumoperitoneum or ascites. BONES: Left hip arthroplasty. No acute bony abnormality. There are degenerative changes in the lumbar spine. SOFT TISSUES: Superficial surrounding soft tissue unremarkable. The findings were discussed with Dr. Morales on 09/24/2018 at 9:30 AM. IMPRESSION: 1. Aortoiliac stent graft is present. Findings compatible with a small endoleak noted on the left near the junction of the iliac limbs. 2. The excluded abdominal aortic aneurysm sac measures 4.1 x 3.6 cm transversely, and approximately 4.0 cm in length 3. Renal arteries, SMA and celiac are patent.. Staff: Kelsi Signed by: Dr. Vik Dolan M.D. on 09/24/2018 9:59 AM
--- NOTE | 2018-09-24 11:17 | Progress Note ---
DATE: Internal Medicine Progress Note SUBJECTIVE: The patient is doing better. The daughter wants her to go to an inpatient rehab because of difficulty walking. The patient declines. She said that she does not have any difficulty walking. She is being discharged by Dr. Garrison, but according to the patient, Dr. Garrison told her she can stay or she can go home and come back as an outpatient for the cystoscopy. The patient wants to stay for cystoscopy because she does not want to come back and forth, so we are going to talk with Dr. Garrison and solve the situation. PHYSICAL EXAMINATION: HEART: Showed regular rhythm. Normal S1, S2 sounds. LUNGS: Clear bilaterally. ABDOMEN: Soft. EXTREMITIES: Show no evidence of cyanosis, edema, or trauma. VITAL SIGNS: Blood pressure 175/73, temperature 36.8, heart rate 62 per minute, respiratory rate 16 per minute, oxygen saturation 98%. LABORATORY DATA: On the BMP; sodium 138, potassium 3.9, chloride 109, CO2 of 26, BUN 7, creatinine 0.59, glucose 88. On the CBC, white blood count 4.61, hemoglobin 10.5, hematocrit 31.8, platelet count a 144,000. PT 13.2, PTT 34.2, INR 0.95. AST 17, ALT 9, total bilirubin 0.4, alkaline phosphatase 63. IMPRESSION: 1. Episode of hematuria, which is resolved. 2. Uncontrolled hypertension. 3. Chronic obstructive pulmonary disease. 4. Coronary artery disease, status post stent placement in the past. 5. Urinary tract infection. PLAN OF TREATMENT: Continue Xopenex q.4 hours, Atrovent q.6 hours, ceftriaxone 2 g IV once a day, Colace 100 mg daily, beta-carotene 1 tablet daily, amlodipine 5 mg daily, nicotine patch 21 mg daily, metoprolol 75 mg daily, Pepcid 20 mg twice a day, [place] 1 tablet q.4 hours as needed, Celebrex 200 mg twice a day. She is also on Micardis 80 mg daily, hydralazine 25 mg twice a day, Zofran 4 mg IV q.4 hours as needed, Plavix 75 mg daily, Spiriva 1 inhalation daily, Ambien 10 mg at night. MD YANCI Simon/MELISSA /[id number]
--- NOTE | 2018-09-24 12:46 | NUR ---
MET W THE PT AT THE BEDSIDE. STATES SHE LIVES ALONE AND IS IND W ADL'S. STATES HER DTR HELPS W DRIVING HER TO APPTS AND GROCERY SHOPPING. PT HAS SCOOTER, ROLLATOR AND A CRAFTMATIC BED. STATES SHE PAINTS IN HER SPARE TIME. PT BECAME TEARFUL, BECAUSE SHE SAYS SHE HAS TO HAVE A PROCEDURE, BUT WILL NEED TO DO AN OUTPT. STATES LILLY TOLD HER SHE WOULD BE DOING THE PROCEDURE HERE AND THEN WAS TOLD SHE WOULD DC HOME AND HAVE THE PROCEDURE AN OUTPT. PT STATES SHE IS MORE FEARFUL OF THE PROCEDURE AND THAT IS WHY SHE IS TEARFUL. EXPLAINED THE IMM LETTER. PT VERBALIZED UNDERSTANDING. STATES SHE IS READY TO DC HOME. PT SIGNED THE IMM LETTER. COPY WAS GIVEN TO THE PT AND COPY TO THE CHART.
--- NOTE | 2018-09-24 18:43 | Consultation ---
DATE OF CONSULTATION: 09/24/2018 I would like to thank Dr. Morales for asking me to see Ms. Judge in consultation. REASON FOR CONSULTATION: 1. Debility. 2. Hematuria. 3. O2 dependency with emphysema. HISTORY: Ms. Judge is an 88-year-old female, who came into the hospital because of gross hematuria, was admitted, had a Grant placed and Urology evaluation by Dr. Garrison was obtained. The patient has been on aspirin, since been stopped and would require cystoscopy later. Also had some urinary retention secondary to clotting. I am being asked to evaluate for rehab needs. PAST MEDICAL HISTORY: Includes emphysema. She is not O2 dependent at home, but polypharmacy for emphysema. PAST SURGICAL HISTORY: Include abdominal aortic aneurysm repair, appendectomy, PTCA and stent placement, hysterectomy with salpingo-oophorectomy. ALLERGIES: PENICILLIN, GLUCOSAMINE, AND MORPHINE. HABITS: Smokes half pack cigarettes a day. Nondrinker. SOCIAL HISTORY: She lives by herself in a third-emma apartment, gets on with a rollator, no O2 dependency, and is very functional according to her. REVIEW OF SYSTEMS: GENERAL: She does get easily winded. NEUROLOGIC: Has some numbness to the left anterior palmer area, which occurred after an injury many many years ago and is not new and . Rest of review of systems is negative. abdominal aortic aneurysm sac measuring 4.1 x 3.6 in . PHYSICAL EXAMINATION: GENERAL: The patient is awake and alert, very pleasant, oriented x3 in no apparent distress. EYES: Gaze is conjugate. ORAL: Tongue is midline. NECK: Supple. HEART: Regular, rate, and rhythm. LUNGS: Diminished breath sounds throughout. She is on the 2-way nasal cannula. ABDOMEN: Nontender and nondistended. EXTREMITIES: Full range of motion in upper extremities as well as right lower extremity. A little bit range of motion issue in the left hip from her previous surgery per her report. Manual muscle testing, 5/5 strength in both upper extremities as well as right leg and left leg. Hip flexion and extension 4/5 strength. Knee flexion and extension 4+/5 strength. Ankle dorsiflexion and plantar flexion 4/5 strength. Review of the therapy notes and discussion with therapist shows that walk about 200 feet modified independent with a rollator. She got weak and winded after walking about 200 feet and IMPRESSION: 1. Gross hematuria. 2. Debility, which was new and more advanced. 3. O2 dependency at this time. 4. History of vascular disease. 5. Abdominal aortic aneurysm. 6. Hypertension. 7. Tobacco abuse. PLAN: At this point, she does not know whether she needs inpatient rehab level of care. She can get up and around. She says she has been through inpatient before and home health and she says she will just keep up and right now she seems to be doing pretty well. She will need her outpatient cystoscopy. Thank you once again for allowing me to participate in care of this very pleasant patient. Nolberto Muse DO RPL/COURTNEYL /[id number]
--- NOTE | 2018-09-24 23:49 | Discharge Summary ---
HOSPITAL COURSE: Anne Judge is an 88-year-old female with past medical history positive for COPD, history of hypertension, and history of coronary artery disease, came here with hematuria. Hematuria was resolved with continued bladder irrigation done by Dr. Garrison. Cystoscopy and retrograde are going to be done as an outpatient by Dr. Garrison. The patient will have Physical Therapy. She was walking well. Dr. Garrison said that she can have that as an outpatient, so she is going home. PHYSICAL EXAMINATION: HEART: Regular rhythm. No murmur or added sound. LUNGS: Clear bilaterally. ABDOMEN: Soft. FINAL IMPRESSION: 1. Episode of hematuria. 2. History of chronic obstructive pulmonary disease. 3. History of coronary artery disease, status post stent placement. PLAN OF TREATMENT: The patient is going to be discharged home today with instruction to continue her inhalers at home. She is on aspirin and Plavix which have been placed on hold for the procedure, but the procedure is going to be scheduled by Dr. Garrison, so she is asked to continue for now until she has a definitive day for the procedure. The patient has been seen by outside machinist supervisor also because of taking aspirin and Plavix for the stents to indicate when the patient can be weaned off medication for the procedure, so the patient is going to be discharged home and follow up with Dr. Garrison as an outpatient. MD YANCI Simon/MELISSA /[id number]
[2018-09-25] MEDS ORDERED: AMLODIPINE BESYLATE 10 MG TAB PO SCH (09:00)
== END 2018-09-24 11:53 | disposition home or self-care (01) | DRG 690 ==
LOC: ER 23:01 → ERHOLD 09-21 02:47 → IMCU 09-21 04:06 → OBSVTOIN 09-21 09:18
PROVIDERS: ADMIT Internal Medicine; ATTEND Internal Medicine
DX: N30.01 Acute cystitis with hematuria (principal); D62 Acute posthemorrhagic anemia; I10 Essential (primary) hypertension; J44.9 Chronic obstructive pulmonary disease, unspecified; I25.10 Atherosclerotic heart disease of native coronary artery without angina pectoris; I25.2 Old myocardial infarction; K21.9 Gastro-esophageal reflux disease without esophagitis; E78.5 Hyperlipidemia, unspecified; Z95.5 Presence of coronary angioplasty implant and graft; Z82.49 Family history of ischemic heart disease and other diseases of the circulatory system; Z88.5 Allergy status to narcotic agent; Z88.0 Allergy status to penicillin; Z88.8 Allergy status to other drugs, medicaments and biological substances; F17.210 Nicotine dependence, cigarettes, uncomplicated; D64.9 Anemia, unspecified; R53.81 Other malaise; Z99.81 Dependence on supplemental oxygen; I71.4 Abdominal aortic aneurysm, without rupture; E83.42 Hypomagnesemia; N28.1 Cyst of kidney, acquired; R33.9 Retention of urine, unspecified
CPT/HCPCS: 36415; 51700; 74174; 74176; 74178; 80053; 81001; 82550; 82553; 83735; 84484; 85025; 85610; 85730; 87040; 87086; 94640; 94664; 96361; 99284; J0696; J2270; J7030; J7050; Q9967

== ENCOUNTER → 2018-10-22 | Day surgery (SDC) | payer MEDICARE, OTHER ==
--- NOTE | 2018-10-18 09:42 | Diagnostic Imaging Report ---
EXAMINATION: CHEST 2 VIEWS INDICATION: Pre-op. COMPARISON: CTA abdomen/pelvis 09/23/2018. FINDINGS: TUBES and LINES: None. LUNGS: Emphysematous changes of the lungs. No evidence of pneumonia or pulmonary edema. There is by pleural-parenchymal opacity, likely reflecting sequela of prior granulomatous disease. There is a calcified granuloma in the left upper lung. PLEURA: Trace right pleural effusion versus thickening. No evidence of pneumothorax. HEART AND MEDIASTINUM: The cardiomediastinal silhouette is unremarkable. The aorta is ectatic and tortuous with atherosclerotic calcifications. BONES AND SOFT TISSUES: Diffuse osteopenia. There is moderate compression deformity of the T10 vertebral body and mild compression deformity of the T12 vertebral body. UPPER ABDOMEN: No free air under the diaphragm. Partially seen abdominal aortic endograft. IMPRESSION: Emphysematous changes of the lungs without evidence of pneumonia or pulmonary edema. Moderate age indeterminate compression deformity of the T10 vertebral body and mild compression deformity of the T12 vertebral body. Diffuse osteopenia. Signed by: Dr. Trell Galvan MD on 10/18/2018 9:39 AM
[~2018-10-22] MED LIST: ASPIR 8181 MG PO; BELLADONNA/OPIUM 60 MG SUPP PR ONE; CELEBREX100 MG PO; COLACE100 MG PO; DONNATAL TABL16.2 MG PO; IOPAMIDOL 610MG/1ML 300 MG/ML VIAL IV ONE; LEVOFLOXACIN 500MG/D5W 100ML 100 ML IV ONE; LIDOCAINE HCL 2% LOCAL INJ 5 ML SDV VIAL INJ ONE; MICARDIS40 MG PO; OCUVITE TABLET1 EAC1 PO; PLAVIX75 MG PO; PRESERVISION T1 EACH PO; PROPOFOL IV EMULSION 10 MG/ML 20 ML VIAL ONE; SPIRIVA18 MCG INH; THERA TEARS NU1 EACH PO; TOPROL XL50 MG PO; UNISOM50 MG PO; XOPENEX INH; ZANTAC150 MG PO; ZYRTEC10 MG PO
--- NOTE | 2018-10-22 10:25 | Operative Report ---
DATE OF PROCEDURE: 10/22/2018 SURGEON: Mark Garrison MD PREOPERATIVE DIAGNOSES: 1. Gross hematuria. 2. Urinary tract infection. POSTOPERATIVE DIAGNOSES: 1. Gross hematuria. 2. Urinary tract infection. 3. Minimal cystocele. 4. Atrophic (senile) vaginitis. OPERATIONS PERFORMED: 1. Cystourethroscopy with bilateral ureteral catheterization and retrograde ureteropyelography (separate procedure performed for hematuria and urinary tract infections). 2. Interpretation of retrograde ureteropyelography. 3. Supervision of fluoroscopy, no radiologist present. 4. Pelvic examination under anesthesia. ANESTHESIA: General. COMPLICATIONS: None. CLINICAL SUMMARY: Anne Judge is an 88-year-old woman who had an admission for gross hematuria and urinary tract infection. She is brought for evaluation. She is a smoker. She is aware of the risks of bleeding, infection, injury to adjacent structures, need for additional procedures, and elected to proceed. OPERATIVE PROCEDURE IN DETAIL: Informed consent was verified. Anne Judge was properly identified, taken to the operating room, placed on the cystoscopy table in supine position. Anesthesia was uneventfully begun. The patient was then carefully gently repositioned in dorsal lithotomy position with all pressure points well padded. Her genitalia were prepared and draped in usual sterile fashion. A 22.5-Dominican cystoscope sheath with obturator in place was atraumatically inserted into the patient's urethra and bladder was drained. Panendoscopy of the urinary bladder revealed no suspicious mucosal lesions, no tumors, no stones, and no diverticula. Normally positioned and configured ureteral orifices were identified. There was minimum amount of erythema noted in the middle of the posterior wall, but this did not appear suspicious. An 8-Dominican catheter was used to cannulate each ureter and retrograde ureteral pyelograms were performed. Interpretation of retrograde ureteropyelography: Contrast was instilled in retrograde fashion bilaterally. There was some degree of ureteral tortuosity. There were severe degenerative changes of the patient's spine. We noted an aortic graft. The ureters are unremarkable. There was no hydronephrosis. No suspicious mucosal lesions were identified. All calices were sharp and delicate. There were no signs of stones. Unobstructed drainage was observed bilaterally fluoroscopically. The patient's bladder was then drained and cystoscope was withdrawn. Pelvic examination under anesthesia revealed very minimal cystocele, no rectocele. No abnormal palpable pelvic masses could be appreciated. There were no obvious mucosal lesions. There was atrophic (senile) vaginitis with vaginal os stenosis. [place] and opium suppository was placed and the patient was uneventfully reversed from anesthesia and taken to recovery room in stable condition. Explicit postoperative instructions were given. We will follow the patient up in the office. Mark MD Bladimir OH/MODL /[id number] cc: Dax Gomez
== END | disposition home or self-care (01) ==
LOC: OR 05:11
PROVIDERS: ATTEND Urology
DX: R31.0 Gross hematuria (principal); N39.0 Urinary tract infection, site not specified; N95.2 Postmenopausal atrophic vaginitis; N81.10 Cystocele, unspecified; F17.210 Nicotine dependence, cigarettes, uncomplicated; I10 Essential (primary) hypertension; J43.9 Emphysema, unspecified; J45.909 Unspecified asthma, uncomplicated; I25.2 Old myocardial infarction; Z01.810 Encounter for preprocedural cardiovascular examination; Z01.818 Encounter for other preprocedural examination; Z79.82 Long term (current) use of aspirin
CPT/HCPCS: 52005; 71046; 74420; 93005; C1758; J1956; J2001; J2704; Q9967

== ENCOUNTER 2019-01-15 14:50 | Emergency (ER) | payer MEDICARE, OTHER ==
[~2019-01-15] VITALS: Ht 170.2 cm; Wt 65.3 kg
[~2019-01-15 14:50] MED LIST changes: -BELLADONNA/OPIUM 60 MG SUPP PR ONE; -IOPAMIDOL 610MG/1ML 300 MG/ML VIAL IV ONE; -LEVOFLOXACIN 500MG/D5W 100ML 100 ML IV ONE; -LIDOCAINE HCL 2% LOCAL INJ 5 ML SDV VIAL INJ ONE; -PROPOFOL IV EMULSION 10 MG/ML 20 ML VIAL ONE
--- NOTE | 2019-01-15 15:25 | NUR ---
PATIENT TO ROOM 2
[2019-01-15 16:05] LABS: BASOPHILS # (AUTO) 0.1 (0.0-0.1); BASOPHILS % 0.6 % (0.0-1.0); EOSINOPHILS # (AUTO) 0.1 (0.0-0.4); EOSINOPHILS % 1.5 % (0.0-6.0); HEMATOCRIT 41.1 % (34.2-44.1); HEMOGLOBIN 13.6 g/dL (12.0-16.0); LYMPHOCYTES % 25.5 % (18.0-39.1); MEAN CORPUSCULAR HEMOGLOBIN 30.7 pg (28-32); MEAN CORPUSCULAR HGB CONC 33.1 g/dL (31-35); MEAN CORPUSCULAR VOLUME 92.8 fL (81-99); MONOCYTES # (AUTO) 0.7 (0.2-0.8); MONOCYTES % 8.9 % (4.4-11.3); NEUTROPHILS # (AUTO) 4.9 (2.1-6.9); NEUTROPHILS % 63.1 % (38.7-80.0); PLATELET COUNT 185 x10e3/uL (140-360); RED BLOOD COUNT 4.43 x10e6/uL (3.6-5.1); RED CELL DISTRIBUTION WIDTH 14.9 % (11.7-14.4)
[2019-01-15 16:07] LABS: BILIRUBIN,URINE NEGATIVE (NEGATIVE); CLARITY,URINE CLOUDY (CLEAR); COLOR,URINE YELLOW (YELLOW); KETONES,URINE NEGATIVE (NEGATIVE); LEUKOCYTE ESTERASE ,URINE MODERATE (NEGATIVE); NITRITE,URINE POSITIVE (NEGATIVE); PROTEIN,URINE DIPSTICK TRACE (NEGATIVE); URINE UROBILINOGEN 0.2 mg/dL (0.2 - 1)
[2019-01-15 16:22] LABS: BACTERIA,URINE MANY /HPF; RBC,URINE 0-5 /HPF (0-5)
[2019-01-15 16:23] LABS: ALANINE AMINOTRANSFERASE 17 IU/L (0-55); ALBUMIN 3.4 g/dL (3.5-5.0); ALKALINE PHOSPHATASE 76 IU/L (40-150); ANION GAP 13.3 mmol/L (8-16); BLOOD UREA NITROGEN 16 mg/dL (7-26); BUN/CREATININE RATIO 21 (6-25); CALCIUM 9.1 mg/dL (8.4-10.2); CARBON DIOXIDE 27 mmol/L (22-29); CHLORIDE 101 mmol/L (98-107); CREATINE KINASE 60 IU/L (29-168); CREATININE, SERUM 0.77 mg/dL (0.57-1.11); EST GLOMERULAR FILTRATION RATE > 60 ML/MIN (60-); GLUCOSE 79 mg/dL (74-118); POTASSIUM 4.3 mmol/L (3.5-5.1); SODIUM 137 mmol/L (136-145)
--- NOTE | 2019-01-15 16:29 | Diagnostic Imaging Report ---
Examination: CT head without contrast Clinical Indication: Unsteady gait.. Technique: Transaxial noncontrast images from the skull base through the vertex were obtained. Sagittal and coronal reformatted images were done. Dose modulation, iterative reconstruction, and/or weight based adjustment of the mA/kV was utilized to reduce the radiation dose to as low as reasonably achievable. Comparison: None. Findings: Scalp: No abnormalities. Bones: Intact. No fractures. No blastic or lytic lesions. Brain sulci: Moderate volume of for patient's age. Ventricles: No hydrocephalus. Extra-axial space: No abnormalities. Parenchyma: There are confluent areas of low-attenuation within subcortical and periventricular white matter, nonspecific, but could represent microvascular ischemic disease. Chronic lacunar infarcts identified in the right putamen and thalamus. No masses, hemorrhage, or acute or chronic cortical based vascular insults. Suprasellar region: No abnormalities. Craniocervical junction: The foramen magnum is patent. No Chiari one malformation. Incidental findings: Atherosclerotic calcification of the cavernous and supraclinoid internal carotid arteries. Impression: 1. No acute intracranial finding. 2. Moderate chronic microvascular ischemic change an volume loss. Chronic lacunar infarct, as above. Signed by: Dr. Luz Marina Jarrell M.D. on 01/15/2019 4:26 PM
[2019-01-15] MEDS ORDERED: AZTREONAM 2GM/NS 100ML 100 ML IV SCH (18:00)
== END 2019-01-15 19:06 | disposition home or self-care (01) ==
LOC: ER 14:50
DX: R42 Dizziness and giddiness (principal); N39.0 Urinary tract infection, site not specified; R05 Cough; F17.210 Nicotine dependence, cigarettes, uncomplicated; I25.10 Atherosclerotic heart disease of native coronary artery without angina pectoris; I10 Essential (primary) hypertension; K21.9 Gastro-esophageal reflux disease without esophagitis; J44.9 Chronic obstructive pulmonary disease, unspecified; Z88.5 Allergy status to narcotic agent; Z91.81 History of falling; Z88.0 Allergy status to penicillin; Z88.2 Allergy status to sulfonamides; Z88.8 Allergy status to other drugs, medicaments and biological substances
CPT/HCPCS: 36415; 70450; 80053; 81001; 82550; 82553; 84484; 85025; 87086; 87186; 93005; 99284